=== PATIENT | male | born 2000 | race Caucasian/White ===

== ENCOUNTER 2019-05-24 17:46 | Emergency (ER) | payer OTHER ==
[2019-05-24 18:18] VITALS: BP 128/65
[2019-05-24] MEDS ORDERED: NORMAL SALINE 1000 ML 1,000 ML IV ONE ×2 (18:26→20:38)
[2019-05-24] MEDS ORDERED: ONDANSETRON 4 MG TAB.RAPDIS PO ONE (18:26)
--- NOTE | 2019-05-24 18:26 | ER Document Report ---
ED Medical Screen (RME) - General Chief Complaint: Nausea/Vomiting Stated Complaint: NAUSEA,VOMITING,ABDOMINAL PAIN Time Seen by Provider: 05/24/19 18:23 Mode of Arrival: Ambulatory Information source: Patient Notes: 18-year-old male presented to ED for nausea vomiting and diarrhea for 24 hours. He states he now has abdominal pain and dehydration. States he has had a small amount of water and Gatorade stay down since about 3:00. He is alert oriented respirations regular nonlabored speaking in full sentences. He denies use of smoking cigarettes, alcohol, or illicit drugs. I have greeted and performed a rapid initial assessment of this patient. A comprehensive ED assessment and evaluation of the patient, analysis of test results and completion of medical decision making process will be conducted by an additional ED providers. - Related Data Allergies/Adverse Reactions: No Known Allergies Allergy (Verified 05/24/19 18:24) Physical Exam - Vital signs Vitals: Temp Pulse Resp BP Pulse Ox 99.2 F 100 20 128/65 H 98 05/24/19 18:17 05/24/19 18:17 05/24/19 18:17 05/24/19 18:17 05/24/19 18:17 Course - Vital Signs Vital signs: Temp Pulse Resp BP Pulse Ox 99.2 F 100 20 128/65 H 98 05/24/19 18:17 05/24/19 18:17 05/24/19 18:17 05/24/19 18:17 05/24/19 18:17
[2019-05-24 19:00] LABS: ABSOLUTE MONOCYTES (AUTO) 0.9 10^3/uL (0.1-1.4); ABSOLUTE NEUT (AUTO) 6.6 10^3/uL (1.7-8.2); BASOPHILS % (AUTO) 0.4 % (0-2); EOSINOPHILS % (AUTO) 0.1 % (0-6); HEMATOCRIT 51.3 % (37.9-51.0); HEMOGLOBIN 17.8 g/dL (13.5-17.0); LYMPHOCYTES % (AUTO) 11.5 % (13-45); MEAN CORPUSCULAR HEMOGLOBIN 29.2 pg (27.0-33.4); MEAN CORPUSCULAR HGB CONC 34.6 g/dL (32.0-36.0); MEAN CORPUSCULAR VOLUME 84 fl (80-97); MONOCYTES % (AUTO) 10.1 % (3-13); PLATELET COUNT 341 10^3/uL (150-450); RED BLOOD COUNT 6.09 10^6/uL (4.35-5.55); RED CELL DISTRIBUTION WIDTH 13.7 % (11.5-14.0); SEGMENTED NEUTROPHILS % (AUTO) 77.9 % (42-78); TOTAL CELLS COUNTED % (AUTO) 100 %; WHITE BLOOD COUNT 8.4 10^3/uL (4.0-10.5)
[2019-05-24 19:07] LABS: APPEARANCE,URINE CLEAR; BILIRUBIN,URINE NEGATIVE (NEGATIVE); COLOR,URINE YELLOW; GLUCOSE, URINE NEGATIVE (NEGATIVE); KETONES,URINE TRACE mg/dL (NEGATIVE); PROTEIN,URINE 30 mg/dL (NEGATIVE); URINE SPECIFIC GRAVITY 1.034; UROBILINOGEN,URINE NEGATIVE mg/dL (<2.0)
[2019-05-24 19:15] LABS: ALBUMIN 5.2 g/dL (3.5-5.0); ALKALINE PHOSPHATASE 63 U/L (38-126); ANION GAP 15 (5-19); ASPARTATE AMINO TRANSFERASE 30 U/L (17-59); BILIRUBIN,TOTAL 1.4 mg/dL (0.2-1.3); BLOOD UREA NITROGEN 19 mg/dL (7-20); CALCIUM 9.9 mg/dL (8.4-10.2); CARBON DIOXIDE 25 mmol/L (22-30); CHLORIDE 100 mmol/L (98-107); GLUCOSE 117 mg/dL (75-110); POTASSIUM 3.5 mmol/L (3.6-5.0); TOTAL PROTEIN 8.9 g/dL (6.3-8.2)
--- NOTE | 2019-05-24 20:40 | ER Document Report ---
ED GI/ - General Chief Complaint: Nausea/Vomiting/Diarrhea Stated Complaint: NAUSEA,VOMITING,ABDOMINAL PAIN Time Seen by Provider: 05/24/19 18:23 Mode of Arrival: Ambulatory Notes: Patient is a 18-year-old male that comes emergency department for chief complaint of nausea, vomiting, and diarrhea that started last night. He states that last night he had persistent vomiting and diarrhea, this is slowed down today with only 2 episodes of diarrhea but he still vomited all 3 times he tried to eat/drink anything. He denies fever, he denies any particular abdominal pain, he states he just feels dehydrated. He denies any surgeries, daily medications, diagnosed medical history. He denies smoking, alcohol, recreati onal drugs. Mother at bedside. No obvious sick contacts, denies recent travel, antibiotics, or suspicious foods. TRAVEL OUTSIDE OF THE [place] IN LAST 30 DAYS: No - Related Data Allergies/Adverse Reactions: No Known Allergies Allergy (Verified 05/24/19 18:24) Past Medical History - General Information source: Patient - Social History Smoking Status: Never Smoker Frequency of alcohol use: None Drug Abuse: None Lives with: Family Family History: Reviewed & Not Pertinent Patient has suicidal ideation: No Patient has homicidal ideation: No - Immunizations Immunizations up to date: Yes Hx Diphtheria, Pertussis, Tetanus Vaccination: Yes Review of Systems - Review of Systems Constitutional: No symptoms reported EENT: No symptoms reported Cardiovascular: No symptoms reported Respiratory: No symptoms reported Gastrointestinal: See HPI Genitourinary: No symptoms reported Male Genitourinary: No symptoms reported Musculoskeletal: No symptoms reported Skin: No symptoms reported Hematologic/Lymphatic: No symptoms reported Neurological/Psychological: No symptoms reported Physical Exam - Vital signs Vitals: Temp Pulse Resp BP Pulse Ox 99.2 F 100 20 128/65 H 98 05/24/19 18:17 05/24/19 18:17 05/24/19 18:17 05/24/19 18:17 05/24/19 18:17 - Notes Notes: GENERAL: Alert, interacts well. No acute distress. HEAD: Normocephalic, atraumatic. EYES: Pupils equal, round, and reactive to light. Extraocular movements intact. ENT: Oral mucosa dry, tongue midline. Oropharynx unremarkable. Airway patent. NECK: Full range of motion. Supple. Trachea midline. LUNGS: Clear to auscultation bilaterally, no wheezes, rales, or rhonchi. No respiratory distress. HEART: Regular rate and rhythm. No murmur ABDOMEN: Soft, non-tender. Non-distended. Bowel sounds present in all 4 quadrants. GENITOURINARY: Deferred EXTREMITIES: Moves all 4 extremities spontaneously. No edema, normal radial and dorsalis pedis pulses bilaterally. No cyanosis. BACK: no cervical, thoracic, lumbar midline tenderness. No saddle anesthesia, normal distal neurovascular exam. Moves all extremities in full range of motion. NEUROLOGICAL: Alert and oriented x3. Normal speech. Cranial nerves II through XII grossly intact. PSYCH: Normal affect, normal mood. SKIN: Warm, dry, normal turgor. No rashes or lesions noted. Course - Re-evaluation Re-evalutation: Patient is well-appearing on my exam, alert, talkative. His abdomen is soft and benign. He has dry mucous membranes but his exam is otherwise unremarkable. CBC shows concentrated hemoglobin, chemistry and urinalysis indicate dehydration as well. No concerning findings however. Based on his symptoms including vomiting and diarrhea which have significantly improved I have suspicion that this is viral and I have low suspicion of acute abdomen or concerning infection. After IV fluids patient states he feels great and is ready to go home. He tolerated p.o. without any difficulty. Discussed follow-up and return precautions. Patient states understanding and agreement. - Vital Signs Vital signs: Temp Pulse Resp BP Pulse Ox 99.2 F 100 20 128/65 H 98 05/24/19 18:17 05/24/19 18:17 05/24/19 18:17 05/24/19 18:17 05/24/19 18:17 - Laboratory Result Diagrams: 05/24/19 18:36 05/24/19 18:36 Laboratory results interpreted by me: 05/24/19 05/24/19 05/24/19 18:36 18:36 18:36 RBC 6.09 H Hgb 17.8 H Hct 51.3 H Lymph % (Auto) 11.5 L Potassium 3.5 L Glucose 117 H Total Bilirubin 1.4 H Total Protein 8.9 H Albumin 5.2 H Urine Protein 30 H Urine Ketones TRACE H Urine Ascorbic Acid 40 H Discharge - Discharge Clinical Impression: Nausea vomiting and diarrhea Condition: Stable Disposition: HOME, SELF-CARE Additional Instructions: Your work-up indicates dehydration, your overall evaluation including labs is most consistent with a viral enteritis. This should resolve on its own with time. Take Zofran for nausea, drink plenty of fluids, and rest. Start with bland food and slowly progress. Follow-up with primary care. Return if you worsen including severe abdominal pain, spiking fever, uncontrolled vomiting, or any other concerning or worsening symptoms. Prescriptions: Ondansetron [Zofran Odt 4 mg Tablet] 1 - 2 tab PO Q4H PRN #15 tab.rapdis PRN Reason: For Nausea/Vomiting Forms: Return to School
[2019-05-24] MEDS ORDERED: ONDANSETRON ODT 4 MG TAB (6 TAB/ER DISP) PO PRN (21:39)
== END 2019-05-24 23:15 | disposition home or self-care (01) ==
LOC: ER 17:46
DX: R11.2 Nausea with vomiting, unspecified (principal); R19.7 Diarrhea, unspecified; R10.9 Unspecified abdominal pain
CPT/HCPCS: 99284; 96360; 96361; 36415; 83690; 85025; 80053; 81001; S0119; J7030